=== PATIENT | female | born 1975 | race Caucasian/White ===

== ENCOUNTER 2016-09-13 19:02 | Observation (INO) | payer OTHER ==
[~2016-09-13] VITALS: Ht 154.9 cm; Wt 61.0 kg
[2016-09-13 20:02] LABS: HEMATOCRIT 43.7 % (36.0-46.0); MCH 29.2 PG (29.0-34.0); MCHC 33.4 G/DL (30.0-36.0); MCV 87.4 FL (83-99); MEAN PLAT.VOLUME 10.1 uM^3 (9.5-12.4); PLATELET COUNT 276 K/uL (156-360); RBC DIS.WIDTH-CV 13.2 % (11.8-14.6); RBC DIS.WIDTH-SD 42.3 % (39-53); WHITE BLOOD COUNT 7.2 K/uL (4.1-10.2)
[2016-09-13 20:14] LABS: CHLORIDE 107 mEq/L (99-109); POTASSIUM 3.7 mEq/L (3.7-5.4); SODIUM 141 mEq/L (136-147)
[2016-09-13 20:15] LABS: GLUCOSE 92 mg/dL (70-99)
[2016-09-13 20:17] LABS: ANION GAP 9 MEQ/L (2-14)
[2016-09-13 20:20] LABS: UREA NITROGEN (BUN) 8 mg/dL (9-23)
[2016-09-13 20:23] LABS: TROP-I INTERPRETATION NEGATIVE; TROPONIN-I < 0.01 ng/mL (0.0-0.30)
[2016-09-13 20:24] LABS: GFR ESTIMATE (CALCULATED) > 59 mL/min/
[2016-09-13 21:26] LABS: D-DIMER ELISA 0.29 mg/L FEU (< 0.57)
[2016-09-13] MEDS ORDERED: OMEPRAZOLE20 M2 PO (21:59)
[2016-09-14 00:18] VITALS: BP 111/55
[2016-09-14 07:52] VITALS: BP 98/49
[2016-09-14 09:14] LABS: TROP-I INTERPRETATION NEGATIVE; TROPONIN-I < 0.01 ng/mL (0.0-0.30)
[2016-09-14 11:30] VITALS: BP 92/50
[2016-09-14 14:53] LABS: TROP-I INTERPRETATION NEGATIVE; TROPONIN-I < 0.01 ng/mL (0.0-0.30)
== END 2016-09-14 16:28 | disposition home or self-care (01) ==
LOC: EME 19:02 → 5WEST 21:56 → EDOF 21:56 → 5WEST 23:25
PROVIDERS: Emergency Medicine; Hospitalist; Physician Assistant Medical
DX: R07.89 Other chest pain (principal); K21.9 Gastro-esophageal reflux disease without esophagitis; F41.9 Anxiety disorder, unspecified; R01.1 Cardiac murmur, unspecified; R00.2 Palpitations
CPT/HCPCS: 71020; 80048; 84484; 85027; 85379; 93005; 99281; 99285; G0378; J1885